=== PATIENT | female | born 1930 ===

== ENCOUNTER → 2016-07-03 | Outpatient (CLI) | payer MEDICARE, OTHER ==
[2016-07-03 14:48] LABS: Body Fluid Polymorphonuclear 10 %
== END | disposition home or self-care (01) ==
LOC: LAB 08:37
DX: M10.00 Idiopathic gout, unspecified site (principal); M25.50 Pain in unspecified joint; M00.9 Pyogenic arthritis, unspecified
CPT/HCPCS: 87070; 87205; 89051; 89060

== ENCOUNTER → 2016-10-02 | Outpatient (CLI) | payer MEDICARE, OTHER ==
[2016-10-02 19:41] LABS: Body Fluid Polymorphonuclear 5 %
== END | disposition home or self-care (01) ==
LOC: LAB 13:43
DX: M06.4 Inflammatory polyarthropathy (principal); M00.9 Pyogenic arthritis, unspecified
CPT/HCPCS: 87205; 89051; 89060

== ENCOUNTER → 2017-01-28 | Outpatient (CLI) | payer MEDICARE | END | disposition home or self-care (01) | LOC: LAB 10:30 | DX: M10.00 Idiopathic gout, unspecified site (principal) | CPT/HCPCS: 36415; 84550; 87070; 87205; 89051; 89060 ==